=== PATIENT | male | born 1965 | race Caucasian/White ===

== ENCOUNTER → 2023-01-14 07:07 | Outpatient (CLI) | payer OTHER, SELFPAY ==
[2023-01-14 08:46] LABS: Alanine Aminotransferase 104 IU/L (<50); Albumin 3.7 g/dL (3.5-5.0); Albumin Globulin Ratio 1.3 (1.0-2.8); Alkaline Phosphatase 66 U/L (38-126); Aspartate Aminotransferase 80 IU/L (17-59); BUN Creatinine Ratio 17.3 (6-22); Bilirubin Total 0.8 mg/dL (0.2-1.3); Blood Urea Nitrogen 14 mg/dL (9-20); Calcium 9.6 mg/dL (8.4-10.2); Carbon Dioxide 29 mmol/L (22-32); Chloride 106 mmol/L (98-107); Cholesterol 143 mg/dL (140-199); Estimated Glomerular Filt Rate > 60 mL/min (>60); Globulin 2.8 g/dL (1.7-4.1); Glucose 109 mg/dL (70-100); HDL Cholesterol 45 mg/dL (40-60); HEMOLYSIS < 15 (0-50); LDL Cholesterol Calculated 84 mg/dL (<100); Potassium 4.6 mmol/L (3.4-5.1); Sodium 138 mmol/L (137-145); Total Protein 6.5 g/dL (6.3-8.2); Triglycerides 71 mg/dL (35-150)
[2023-01-14 09:07] LABS: Prostate Specific Antigen Scrn 0.504 ng/mL (0.1-4.0)
[2023-01-15 17:26] LABS: Hep C Virus Ab w/Reflex Quant REACTIVE s/c (NEGATIVE)
[2023-01-21 22:33] LABS: HCV Genotype 3 (.); HCV LOG 10 6.539 (.)
== END ==
PROVIDERS: PCP Internal Medicine; Referring Provider Internal Medicine; Visit Provider Internal Medicine
DX: F31.9 Bipolar disorder, unspecified (principal); Z13.6 Encounter for screening for cardiovascular disorders; Z13.1 Encounter for screening for diabetes mellitus; B19.20 Unspecified viral hepatitis C without hepatic coma; Z12.5 Encounter for screening for malignant neoplasm of prostate
CPT/HCPCS: 36415; 80053; 80061; 86803; 87522; G0103

== ENCOUNTER → 2023-03-23 15:41 | Outpatient (CLI) | payer OTHER, SELFPAY ==
[2023-03-23 16:54] LABS: Add Manual Diff / Slide Review NO; Basophils Absolute Auto 0 /uL (0-100); Basophils Percent Auto 0.5 % (0-2); Eosinophils Absolute Auto 100 /uL (0-450); Eosinophils Percent Auto 0.8 % (2-4); Hematocrit 44.7 % (41-53); Lymphocytes Absolute Auto 2900 /uL (1100-4500); Lymphocytes Percent Auto 32.4 % (25-40); Mean Corpuscular HGB Conc 33.7 % (30-36); Mean Corpuscular Hemoglobin 30.8 PG (26-34); Mean Corpuscular Volume 91.6 fL (80-100); Monocytes Absolute Auto 600 /uL (0-900); Neutrophils Absolute Auto 5300 /uL (1500-7000); Neutrophils Percent Auto 59.3 % (50-75); Platelet Count 181 X10^3/uL (150-400); Red Blood Cell Count 4.88 X10^6/uL (4.5-5.9); Red Cell Distribution Width 13.4 % (11.6-14.8)
[2023-03-23 18:25] LABS: Free T4, Direct Thyroxine 0.98 ng/dL (0.78-2.19)
[2023-03-23 18:39] LABS: Thyroid Stimulating Hormone 2.32 uIU/mL (0.47-4.68)
== END ==
PROVIDERS: PCP Internal Medicine; Referring Provider Internal Medicine; Visit Provider Internal Medicine
DX: R53.83 Other fatigue (principal)
CPT/HCPCS: 36415; 84439; 84443; 85025

== ENCOUNTER → 2023-03-25 15:13 | Outpatient (CLI) | payer OTHER, SELFPAY ==
--- NOTE | 2023-03-25 15:14 | DI.US.S_ITS ---
PROCEDURE: US THYROID INDICATIONS: goiter TECHNIQUE: Real-time scanning was performed of the thyroid gland, with image documentation. COMPARISON: None. FINDINGS: Right: Thyroid lobe measures 5.4 x 3.1 x 2.9 cm, and is heterogeneous in echotexture. Left: Thyroid lobe measures 2.3 x 2.1 x 4.3 cm, and is heterogeneous in echotexture. Isthmus: Enlarged, but not measured separately. Multiple anechoic cystic spaces are seen within the thyroid without a solid or suspicious nodule identified. IMPRESSION: Enlarged heterogeneous thyroid with increased vascularity. Recommend correlation for thyroiditis. Approved by: Hank Holbrook M.D. on 03/25/2023 at 16:39
== END ==
LOC: US 15:13
PROVIDERS: PCP Internal Medicine; Referring Provider Internal Medicine; Visit Provider Internal Medicine
DX: E04.9 Nontoxic goiter, unspecified (principal)
CPT/HCPCS: 76536

== ENCOUNTER 2023-04-28 07:07 | Day surgery (SDC) | payer OTHER, SELFPAY ==
[2023-04-28] VITALS (7 sets, daily range): BP systolic 117–145; BP diastolic 77–93; PULSE 68–89; RESP 12–19; TEMP 36.2–37.3; O2SAT 95–98
--- NOTE | 2023-04-28 | PATH_ITS ---
[facility] Accession Number: [id number] No. of containers..01 Tissue . 01 Material submitted: . rectum - RECTAL POLYP . 01 Diagnosis: RECTAL POLYP: Hyperplastic polyp. [facility] 04/30/2023 1130 Local . 01 Electronically signed: . Christopher John MD, PhD, Pathologist NPI- [id number] . 01 Gross description: . RECTAL POLYP: Received in formalin is 3 fragment(s) of giron, soft tissue measuring 0.4 x 0.3 x 0.1 cm to 0.2 x 0.1 x 0.1 cm submitted entirely in 1 cassette(s) /AAY 04/29/2023 0432 Local . 01 Pathologist provided ICD-10: K62.1 . 01 CPT . 915077 Specimen Comment: A courtesy copy of this report has been sent to [phone] Performed at: 01 [facility] [address] [facility] [address] [place] [address], [place], [place] [id number] MD Jason Silva MD Phone: [phone]
[2023-04-28] MEDS: LACTATED RINGERS 1,000 ML 42 ML IV (07:24)
[2023-04-28] MEDS: FLEETS ENEMA 1 EACH PR (07:48)
--- NOTE | 2023-04-28 08:09 | PM.HP.1 ---
History of Present Illness History of Present Illness Date Patient Seen: 04/28/23 Time Patient Seen: 08:09 Chief complaint: Screening Colonoscopy Narrative: 58-year-old man here for screening colonoscopy. No previous colonoscopy. No abdominal concerns. No family history of intestinal malignancy. [facility] Medical History Vision disorder Hearing decreased Anxiety Headache Foot pain Chronic back pain Ankle pain Chronic hepatitis C Drug-induced insomnia (01/11/15) Midline low back pain without sciatica Attention deficit disorder (ADD) in adult Bipolar I disorder Surgical History Anesthesia History of back surgery Family History Father Family history of diabetes mellitus (DM) Diabetes mellitus Hypertension Mother Family history of diabetes mellitus (DM) Social History Smoking Status: Current every day smoker Meds Home Medications and Allergies Allergies Allergy/AdvReac Type Severity Reaction Status Date / Time codeine [CODEINE] AdvReac Mild HEADACHE Verified 04/28/23 07:48 meperidine [MEPERIDINE] AdvReac Mild FIDGETING Verified 04/28/23 07:48 morphine [MORPHINE] AdvReac Mild ITCHY Verified 04/28/23 07:48 * Pain Agreement AdvReac Mild with Dr. Yeboah 04/28/23 07:27 Smith, 04/07/11 Exam Vital Signs (past 8 hours): - 04/28/23 07:28 Temperature 97.1 F L Pulse Rate 89 Respiratory Rate 18 Blood Pressure 130/77 Pulse Oximetry 95 Oxygen Delivery Method Room Air Oxygen Delivery Method Room Air Narrative Exam Narrative: General adult man alert oriented no acute distress Chest nonlabored respiration Extremities warm well perfused Assessment & Plan Assessment & Plan narrative: The patient requires colorectal screening and colonoscopy is recommended. Technical details were discussed. Risks, benefits, alternatives explained. Risks including but not limited to myocardial infarction, aspiration, bleeding, pain, missed lesion, incomplete examination, need for further radiographic studies, colonic perforation, and need for major abdominal surgery were discussed. All questions were answered to their satisfaction, and they are in agreement with this plan.
--- NOTE | 2023-04-28 08:46 | P.OP.COLON_ITS ---
Operative Date/Time/Diagnoses Date of procedure: 04/28/23 Time of procedure: 08:46 Pre-op diagnosis: Colorectal screening Post-op diagnosis: other (Colonic polyps x2) Procedure & Clinicians Study performed: Colonoscopy and polypectomy Same procedure as scheduled: Yes Indications: Colorectal screening Surgeon: David Owens Procedure Notes Procedure in detail: The history and physical was performed/updated and the patient is ASA class is 2. The procedure was discussed in detail with the patient. Potential risks complications including infection, bleeding, missed diagnosis, perforation, need for surgery, and were explained. Their questions were answered and informed consent was obtained. Patient was brought to the procedure room and placed standard monitoring equipment. The patient's vital signs were monitored continuously throughout the entire procedure. Prior to starting time-out was performed. The patient was placed in the left lateral recumbent position. Procedural sedation was administered by anesthesia. Examination began with a thorough inspection of the perianal area there was no evidence of fissures, fistulae, external hemorrhoids or cutaneous malignancy. The colonoscopy scope was then placed into the anal canal and was advanced to the cecum, which was identified by the ileocecal valve, the appendiceal orifice and the confluence of the taenia. The scope was then slowly withdrawn examining colon thoroughly in all directions, irrigating it of any residual stool. The scope was retroflexed within the rectum The patient tolerated the procedure well. They will be discharged once criteria are met. The prep was of fair quality. The withdrawl time was 7 minutes. FINDINGS * Rectum polyps 3 mm x 2 removed with biopsy forceps likely hyperplastic Specimen(s): other (Rectal polyps x2) Complications: none Post-procedure Plan for aftercare: Follow-up is dependent on pathology findings Disposition: same day surgery
== END 2023-04-28 09:37 | disposition home or self-care (01) ==
PROVIDERS: PCP Internal Medicine; Referring Provider Surgery; Visit Provider Surgery
PROC: 0DJD8ZZ Inspection of Lower Intestinal Tract, Via Natural or Artificial Opening Endoscopic (ICD-10-PCS; CPT 45378; principal; 2023-04-28 08:15)
DX: Z12.11 Encounter for screening for malignant neoplasm of colon (principal); K62.1 Rectal polyp
CPT/HCPCS: 45380; J2704